=== PATIENT | male | born 1935 | race Caucasian/White ===

== ENCOUNTER 2024-07-01 19:34 | Emergency (ER) | payer MEDICARE, MEDICAID ==
[~2024-07-01] VITALS: Ht 167.6 cm; Wt 72.0 kg
[~2024-07-01 19:34] MED LIST: ASPI-1497 MT; ATOR40TA70 MT; CARB-32 MT; CLOP75TA33 PO; DOCU-422 MT; ERGO1250 PO; FAMO20TA8 PO; HYDR25TA MT; INSLIS SUBCUT; INSU100I28 SQ; MULT-379 MT; PEG15DRO14 EACHEYE; POTA-354 MT
[2024-07-01 19:39] VITALS: TEMP 98.6; O2SAT 98
[2024-07-01] MEDS: IBUPROFEN 600MG TABLET PO ONE (21:10)
[2024-07-01 22:00] VITALS: BP 154/61; PULSE 62; RESP 16; O2SAT 98
== END 2024-07-02 04:16 | disposition home or self-care (01) ==
LOC: ER 19:34
DX: S62.607A Fracture of unspecified phalanx of left little finger, initial encounter for closed fracture (principal); E11.9 Type 2 diabetes mellitus without complications; I10 Essential (primary) hypertension; K21.9 Gastro-esophageal reflux disease without esophagitis; Z79.02 Long term (current) use of antithrombotics/antiplatelets; Z79.4 Long term (current) use of insulin; Z79.82 Long term (current) use of aspirin; Z79.899 Other long term (current) drug therapy; Z86.73 Personal history of transient ischemic attack (TIA), and cerebral infarction without residual deficits; W22.8XXA Striking against or struck by other objects, initial encounter; Y93.89 Activity, other specified; Y92.89 Other specified places as the place of occurrence of the external cause; Y99.8 Other external cause status
CPT/HCPCS: 29125; 73130; 99283; A4565